=== PATIENT | male | born 1955 | race Hispanic/Latino ===

== ENCOUNTER 2019-08-07 12:04 | Outpatient (CLI) | payer OTHER ==
--- NOTE | 2019-08-07 12:56 | XRay Report ---
Bilateral elbows, 4 views INDICATION: Bilateral elbow pain FINDINGS: The joint spaces are intact. No fracture or dislocation. No significant spurring or arthrit ic change. No joint effusion. No olecranon bursal swelling. No significant abnormality on either side . Signer Name: Oc Morataya MD Signed: 08/07/2019 12:51 PM Workstation Name: [id number]
== END 2019-08-07 12:05 | disposition home or self-care (01) ==
LOC: XRAY 12:04
PROVIDERS: ATTEND Internal Medicine
DX: Z02.71 Encounter for disability determination (principal); M25.521 Pain in right elbow; M25.522 Pain in left elbow

== ENCOUNTER 2019-08-07 12:31 | Emergency (ER) | payer SELFPAY ==
--- NOTE | 2019-08-07 12:36 | Emergency Department Report ---
Blank Doc - Documentation Documentation: 63-year-old male that presents with left ankle pain and swelling after fall. This initial assessment/diagnostic orders/clinical plan/treatment(s) is/are subject to change based on patient's health status, clinical progression and re- assessment by fellow clinical providers in the ED. Further treatment and workup at subsequent clinical providers discretion. Patient/guardians urged not to elope from the ED as their condition may be serious if not clinically assessed and managed. Initial orders include: 1- Patient sent to [facility] for further evaluation and treatment 2- xrays
[2019-08-07 12:40] VITALS: BP 143/74
--- NOTE | 2019-08-07 13:17 | XRay Report ---
LEFT ANKLE 3 VIEWS INDICATION / CLINICAL INFORMATION: pain s/p fall. COMPARISON: None available. FINDINGS: Mild lateral ankle soft tissue swelling is present without acute fracture or dislocation. Several wel l-corticated avulsion fractures are seen along the inferior aspect of the medial malleolus likely sec ondary to remote deltoid ligament sprain or a mild degenerative arthrosis is seen within the tibiotal ar joint with small anterior osteophytes arising from the tibial plafond. Signer Name: Festus Cristobal MD Signed: 08/07/2019 1:13 PM Workstation Name: [id number]
--- NOTE | 2019-08-07 13:22 | Emergency Department Report ---
ED Lower Extremity HPI - General Chief Complaint: Extremity Injury, Lower Stated Complaint: L ANKLE PAIN Time Seen by Provider: 08/07/19 12:34 Source: patient Mode of arrival: Ambulatory Limitations: No Limitations - History of Present Illness Initial Comments: 63-year-old male presents to ED with left ankle pain. Patient reports he stepped in a hole and twisted his ankle. Patient reports the injury actually happened in 1 month ago. Patient states he was seen at an outside facility and told that he had an ankle sprain. Patient states he was here today getting x- rays for [employer], however his ankle was not x-rayed. Patient states he has been having intermittent pain since the injury one month ago. Patient is not ambulatory. X-rays were ordered from triage. MD Complaint: ankle injury -: month(s) (1) Injury: Ankle: Left Place: work Severity: moderate Worsens With: weight bearing Context: fall Associated Symptoms: denies: numbness, tingling - Related Data Home Medications Medication Instructions Recorded Confirmed Last Taken No Known Home Medications [No 08/17/14 08/17/14 Unknown Reported Home Medications] Allergies Allergy/AdvReac Type Severity Reaction Status Date / Time No Known Allergies Allergy Unverified 08/17/14 04:17 ED Review of Systems ROS: Stated complaint: L ANKLE PAIN Other details as noted in HPI Comment: All other systems reviewed and negative Musculoskeletal: as per HPI ED Past Medical Hx - Past Medical History Previous Medical History?: Yes Hx Kidney Stones: Yes Additional medical history: GALLBLADDER PROBLEM - Surgical History Past Surgical History?: Yes Additional Surgical History: HERNIA, abd surgery - Social History Smoking Status: Never Smoker Substance Use Type: None - Medications Home Medications: Home Medications Medication Instructions Recorded Confirmed Last Taken Type No Known Home Medications [No 08/17/14 08/17/14 Unknown History Reported Home Medications] ED Physical Exam - General Limitations: No Limitations General appearance: alert, in no apparent distress - Head Head exam: Present: atraumatic, normocephalic - Eye Eye exam: Present: normal appearance - ENT ENT exam: Present: mucous membranes moist - Neck Neck exam: Present: normal inspection - Respiratory Respiratory exam: Present: normal lung sounds bilaterally. Absent: respiratory distress - Cardiovascular Cardiovascular Exam: Present: regular rate, normal rhythm - Extremities Exam Extremities exam: Present: other (mild tenderness to left ankle, mild swelling present, DP pulse intact, foot is warm, sensation normal, cap refill normal) - Neurological Exam Neurological exam: Present: alert, oriented X3. Absent: motor sensory deficit - Psychiatric Psychiatric exam: Present: normal affect, normal mood - Skin Skin exam: Present: warm, dry, intact, normal color ED Course Vital Signs 08/07/19 12:38 Temperature 99.5 F Pulse Rate 87 Respiratory 18 Rate Blood Pressure 143/74 O2 Sat by Pulse 100 Oximetry ED Lower Extremity MDM - Radiology Data Radiology results: report reviewed, image reviewed - Medical Decision Making 62-year-old male with ankle pain 1 month. X-rays done and ordered from triage. There is no long bone fracture, other than avulsion fractures that are noted. Patient has been ambulatory for the last month. Patient does not have an emergent condition at this time. Patient given outpatient resources for follow- up. Return precautions given. - Differential Diagnosis sprain, fracture Critical care attestation.: If time is entered above; I have spent that time in minutes in the direct care of this critically ill patient, excluding procedure time. ED Disposition Clinical Impression: Left ankle sprain, Avulsion fracture Disposition: Z-07 MED SCREENING EXAM-LEFT Is pt being admited?: No Condition: Stable Instructions: Ankle Sprain (ED) Referrals: SABRINA WASSERMAN MD [Staff Physician] - 3-5 Days Time of Disposition: 13:29
== END 2019-08-07 14:03 | disposition left against medical advice (07) ==
LOC: ED 12:31
DX: S93.402A Sprain of unspecified ligament of left ankle, initial encounter (principal); X50.9XXA Other and unspecified overexertion or strenuous movements or postures, initial encounter; Y93.89 Activity, other specified; Y92.89 Other specified places as the place of occurrence of the external cause; Y99.8 Other external cause status
CPT/HCPCS: 99283